=== PATIENT | female | born 1935 | race Caucasian/White ===

== ENCOUNTER 2017-07-17 07:13 | Inpatient (IN) | payer MEDICARE, OTHER | END 2017-07-24 13:00 | DRG 418 | LOC: D.ER 07:13 → D.SDCHOLD 18:45 → D.MS 21:39 | PROC: 0FT44ZZ Resection of Gallbladder, Percutaneous Endoscopic Approach (ICD-10-PCS; principal; 2017-07-20) | PROC: BF121ZZ Fluoroscopy of Gallbladder using Low Osmolar Contrast (ICD-10-PCS; 2017-07-20) | PROC: 0FB03ZX Excision of Liver, Percutaneous Approach, Diagnostic (ICD-10-PCS; 2017-07-20) | DX: K81.0 Acute cholecystitis (principal); R18.8 Other ascites; R16.0 Hepatomegaly, not elsewhere classified; I48.91 Unspecified atrial fibrillation; D64.9 Anemia, unspecified; T50.995A Adverse effect of other drugs, medicaments and biological substances, initial encounter; I44.7 Left bundle-branch block, unspecified; I48.0 Paroxysmal atrial fibrillation ==

== ENCOUNTER → 2019-02-14 10:35 | Outpatient (CLI) | payer MEDICARE, OTHER ==
[2017-07-18 13:15] VITALS: BMI 28.2
[~2019-02-14 10:35] MED LIST: CENTRUM COMPLE1 EACH PO; COLACE100 MG PO; FIORINAL W/CODE1 CA1 PO; FLAGYL500 MG PO; LEVAQUIN500 MG PO; LOMOTIL TABLET1 TAB PO; NORCO 10/325 TA1 TA1 PO; PRAVACHOL40 MG PO; TIROSINT50 MCG PO; TUMS500 MG PO; TYLENOL 325 MG325 MG PO; VITAMIN D2000 UNIT PO; XARELTO20 MG PO
--- NOTE | 2019-02-17 14:31 | ST ---
PATIENT:GIANLUCA QUINTERO MEDICAL RECORD: [id number] SEX: F LOCATION:[facility] ORDER #: ADMISSION DATE: 02/14/19 AGE OF PATIENT: 84 REFERRING PHYSICIAN: INTERPRETING PHYSICIAN: BRIANDA LEWIS MD DATE OF SERVICE: 02/14/2019 PROCEDURE: Nuclear stress test. INDICATION: Angina, shortness of breath, hypertension. She was exercised on standard Lexiscan protocol with 27 mCi of sestamibi injected at peak stress, 9 mCi was used previously for rest images. FINDINGS: Gated SPECT reveals a dilated cardiomyopathy, ejection fraction decreased moderately at 38%. SPECT imaging: Cardiolite was used as myocardial perfusion agent. There is a mixed perfusion defect inferiorly and apically. This includes the basal, mid, apical, inferior segments as well as the apex itself. The defect is large. There is reversibility throughout as well as being fixed. OVERALL IMPRESSION: This is markedly abnormal nuclear stress test, high risk for an event in that there is reversibility and fixed perfusion defect throughout the entire inferior and apical area and ejection fraction is decreased at 38%. It does suggest the presence of hemodynamically significant coronary artery disease and a previous myocardial infarction with continued ischemia. TRANSINT:[id number] Voice Confirmation ID: [id number] DOCUMENT ID: [id number] BRIANDA LEWIS MD at 1431 CC: [id number] DICTATION DATE: 02/16/19 0935 MEDICAL PROGRAM SPECIALIST: 02/17/19 0109 DEP CLI 02/14/19 [place] [id number]
== END | disposition home or self-care (01) ==
LOC: D.HCCARDIO 10:35
PROVIDERS: ATTEND Internal Medicine Interventional Cardiology
DX: I20.9 Angina pectoris, unspecified (principal)

== ENCOUNTER 2019-02-21 09:25 | Outpatient (CLI) | payer MEDICARE, OTHER ==
[~2019-02-21] VITALS: Ht 167.6 cm; Wt 79.5 kg
--- NOTE | ~2019-02-21 | HEMODYNAMI ---
PATIENT:GIANLUCA QUINTERO MEDICAL RECORD: [id number] : 39 LOCATION:[facility] ADMISSION DATE: 02/21/19 Generatedon:02/21/201912:04 Patient name: GIANLUCA QUINTERO Patient #: [id number] SSN: : 1935 Date of study: 02/21/2019 Page: Of Hemodynamic Procedure Report Patient Data Patient Demographics Procedure consent was obtained First Name: GIANLUCA Gender: Female Last Name: INGRID : 1935 Middle Initial: M Age: 84 year(s) Patient #: [id number] Race: Unknown Additional ID: [id number] Contact details [address]: [address] [place] [address] State: [place] City: [place] Zip code: [address] Admission Admission Data Admission Date: 02/21/2019 Admission Time: 9:25 Lab Results Lab Result Date: 02/21/2019 Lab Result Time: 0:00 Biochemistry Name Units Result Min Max BUN mg/dl 26 --(----)-* 7 18 Creatinine mg/dl 0.8 --(-*--)-- 0.6 1.3 eGFR ml/min 73.71639 *-(----)-- 90 120 NONAFRICAN CBC Name Units Result Min Max Hemoglobin g/dl 13.5 --(*---)-- 13.5 17.5 Procedure Procedure Types Cath Procedure Diagnostic Procedure LHC LH w/Coronaries Sedation Charges Moderate Sedation up to 15 minutes Procedure Description Procedure Date Procedure Date: 02/21/2019 Procedure Start Time: 11:54 Procedure End Time: 12:02 Procedure Staff Name Function Jose Antonio Pandya MD Performing Physician Jazlyn Ross RN Nurse Faith Sabillon RT Scrub Meghan Sims RT Monitor Nithin Christianson RT Oil Field Operator Procedure Data Cath Procedure Fluoroscopy Diagnostic fluoroscopy Total fluoroscopy Time: 0.7 time: 0.7 min min Diagnostic fluoroscopy Total fluoroscopy dose: 270 dose: 270 mGy mGy Contrast Material Contrast Material Type Amount (ml) Isovue 300 48 Entry Location Entry Primary Successful Side Size Upsize Upsize Entry Closure Lux ccessful Closure Location (Fr) 1 (Fr) 2 (Fr) Remarks Device Remarks Radial Right 6 Fr Mechanical artery Short Compression Estimated blood loss: 5 ml Diagnostic catheters Device Type Used For End Catheter Placement DIAGNOSTIC [place] 110cm 5 Multi-vessel Fr catheter ([id number]) Angiography Procedure Complications No complications Procedure Medications Medication Administration Route Dosage 0.9% NaCl I.V. 100 ml/hr Oxygen etCO2 Nasal cannula 2 l/min Lidocaine 2% added to field 20 Heparin Flush Bag added to field 2 bags (1000units/500ml NS) Radial Cocktail added to field 1 syringe (Verapamil 2mg/Nitro 400mcg/Heparin 1500units) Versed I.V. 2 mg Fentanyl I.V. 100 mcg Hemodynamics Rest HGB: 13.5 (g/dl) Heart Rate: 73 (bpm) Pressure Samples Time Site Value (mmHg) Purpose Heart Use Rate(bpm) 11:57 LV 87/3,15 Snapshot 86 Snapshots Pre Cath Intra NCS Post Cath Vital Signs Time Heart Resp SPO2 etCO2 NIBP (mmHg) Rhythm Pain Sedation Rate (ipm) (%) (mmHg) Status Level (bpm) 11:47:57 64 21 97 0 Measuring NSR 0 (11) 10(A) , No pain 11:50:08 70 17 100 15 150/79(104) NSR 0 (11) 10(A) , No pain 11:54:33 70 13 98 11.3 131/76(94) NSR 0 (11) 10(A) , No pain 11:58:53 79 17 99 33.1 116/63(85) NSR 0 (11) 10(A) , No pain 12:03:09 74 13 94 33.8 116/55(75) NSR 0 (11) 10(A) , No pain Medications Time Medication Route Dose Verified Delivered Reason Notes E ffectiveness by by 11:46:16 0.9% NaCl I.V. 100 Jose Antonio Jazlyn used for ml/hr Ya Ross shellfish harvester 11:46:22 Oxygen etCO2 2 l/min Jose Antonio Crowea used for Nasal Ya Ross procedure cannula RN 11:46:27 Lidocaine 2% added 20ml Jose Antonio Brady for local to vial Ya Pandya MD anesthetic field 11:46:31 Heparin Flush added 2 bags Jose Antonio Pagerey used for Bag to Ya Pandya MD procedure (1000units/500ml field NS) 11:46:37 Radial Cocktail added 1 Jose Antonio Jose Antonio used for (Verapamil to syringe Ya Pandya MD procedure 2mg/Nitro field 400mcg/Heparin 1500units) 11:54:48 Versed I.V. 2 mg Jose Antonio Hobson for Ya Ross sedation RN 11:54:56 Fentanyl I.V. 100 mcg Jose Antonio Hobson for aY Ross sedation braider operator Log Time Note 11:25:24 Faith Sabillon RT(R) sent for patient. Start room use. 11:36:41 Diagnostic Cath Status : Elective 11:37:14 ACC Patient presents with Stable Angina CCS Anginal Class 2--Slight limitation of ordinary activity. 11:37:18 ACCPatient has been prescribed/administered the following anti-anginal medication within the last 2 weeks: None 11:37:21 Procedure Status Elective Heart Cath (OP). 11:37:30 Time tracking: Regular hours (M-F 7:00 - 5:00) 11:37:36 Plan of Care:Hemodynamics will remain stable., Cardiac rhythm will remain stable., Comfort level will be maintained., Respiratory function will remain adequate., Patient/ family verbilizes understanding of procedure., Procedure tolerated without complication., Recovers from procedure without complications.. 11:37:40 Patient received from Pre/Post Procedure Room to [facility] 2 Alert and oriented. Tansferred to table in Supine position. 11:37:42 Warm blankets applied, and clinton hugger turned on for patient comfort. 11:37:43 Signed procedure consent form obtained from patient. 11:37:44 Correct patient and procedure confirmed by team. 11:37:45 ECG and BP/O2 sat monitors applied to patient. 11:46:08 Vital chart was started 11:46:16 0.9% NaCl 100 ml/hr I.V. was administered by Jazlyn Ross RN; used for procedure; 11:46:22 Oxygen 2 l/min etCO2 Nasal cannula was administered by Jazlyn Ross RN; used for procedure; 11:46:27 Lidocaine 2% 20ml vial added to field was administered by Jose Antonio Pandya MD; for local anesthetic; 11:46:31 Heparin Flush Bag (1000units/500ml NS) 2 bags added to field was administered by Jose Antonio Pandya MD; used for procedure; 11:46:37 Radial Cocktail (Verapamil 2mg/Nitro 400mcg/Heparin 1500units) 1 syringe added to field was administered by Jose Antonio Pandya MD; used for procedure; 11:49:39 Baseline sample Acquired. 11:49:49 Rhythm: sinus rhythm 11:49:51 Full Disclosure recording started 11:49:55 H&P Date Dictated: 02/21/2019 Within 30 days and on chart., H&P Addendum completed by physician on day of procedure. (MUST COMPLETE FOR ALL OUTPATIENTS). 11:49:56 Pre-procedure instructions explained to patient. 11:49:57 Pre-op teaching completed and patient verbalized understanding. 11:49:59 Family in patients room. 11:50:01 Patient NPO since Midnight. 11:50:02 Is the patient allergic to Iodine/contrast media? No. 11:50:03 Was the patient premedicated? No 11:50:06 Is patient on blood thinner?Yes 11:50:09 ACC The patient was administered the following blood thiners within the last 24 hours: ACCLovenox 11:50:12 Patient diabetic? No. 11:50:14 Previous problem with sedation/anesthesia? No ? 11:50:16 Snore? Yes 11:50:16 Sleep apnea? Yes 11:50:17 Deviated septum? No 11:50:18 Opens mouth fully? Yes 11:50:19 Sticks out tongue? Yes 11:50:20 Airway obstruction? No ? 11:50:23 Dentures? No ? 11:50:27 Pre procedure: right dorsailis pedis pulse 1+ Palpable, but thready & weak; easily obliterated 11:50:29 Pre procedure: left dorsailis pedis pulse 1+ Palpable, but thready & weak; easily obliterated 11:50:32 Patient pain scale 0/10 ?. 11:50:39 IV patent on arrival in right antecubital with 0.9% NaCl at KVO. 11:50:41 Lab results completed and on chart. 11:50:44 Right Radial & Right Groin area was prepped with chlora-prep and draped in sterile fashion 11:50:46 Alarms reviewed by R. N. 11:50:46 Sharps counted by scrub and verified by R.N. 11:53:06 Physician arrived 11:53:06 --------ALL STOP TIME OUT------ 11:53:06 Final Timeout: patient, procedure, and site verified with staff and physician. All members of the team are in agreement. 11:53:10 Right Radial & Right Groin site verified by team. 11:53:13 Fire Safety Assessment: A--An alcohol-based skin anteseptic being used preoperatively., C--Open oxygen or nitrous oxide is being used., D--An ESU, laser, or fiber-optic light is being used. 11:53:16 Physical assessment completed. ASA score P 2 - A patient with mild systemic disease as per Jose Antonio Pandya MD. 11:54:03 Sedation plan: IV Moderate Sedation Medication:Versed, Fentanyl 11:54:06 Use device set Radial Dx or PCI 11:54:08 ACIST Syringe (51628) opened to sterile field. 11:54:09 Medline Cath Pack ([id number]) opened to sterile field. 11:54:09 Bag Decanter (2002S) opened to sterile field. 11:54:09 ACIST Hand Control (58443) opened to sterile field. 11:54:10 ACIST Manifold (10536) opened to sterile field. 11:54:10 Tegaderm 4 x 4 (1626W) opened to sterile field. 11:54:11 MBrace Wrist Support ([id number]) opened to sterile field. 11:54:13 SHEATH 6FR RAIN (3068845) opened to sterile field. 11:54:14 EMERALD Guide Wire (903-847) opened to sterile field. 11:54:17 Procedure started. 11:54:23 Local anesthetic to right radial artery with Lidocaine 2% by Jose Antonio Pandya MD.INITIAL ACCESS ONLY 11:54:31 A 6 Fr Short sheath was inserted into the Right Radial artery 11:54:48 Versed 2 mg I.V. was administered by Jazlyn Ross RN; for sedation; 11:54:56 Fentanyl 100 mcg I.V. was administered by Jazlyn Ross RN; for sedation; 11:55:12 Lab Result : Creatinine 0.8 mg/dl 11:55:12 Lab Result : BUN 26 mg/dl 11:55:12 Lab Result : eGFR NONAFRICAN 73.59456 ml/min 11:55:12 Lab Result : Hemoglobin 13.5 g/dl 11:55:22 2) 60-89 Mildly reduced kidney function, and other findings (as for stage 1) point to kidney disease. 11:55:40 Maximum allowable contrast dose (3.7 X eGFR X 0.75)202 ml. 11:56:31 A DIAGNOSTIC [place] 110cm 5 Fr catheter ([id number]) was advanced over the wire and used for Multi-vessel Angiography. 11:57:27 LV hemodynamics recorded. 11:57:28 LV gram done using STEWART 11:57:31 Injector settings: Ml/sec: 5, Volume: 15, 11:57:38 EF : 60 % 11:58:20 LCA angiography performed. 11:58:24 Injector settings: Ml/sec: 3, Volume: 6, 11:58:57 RCA angiography performed. 11:59:00 Injector settings: Ml/sec: 3, Volume: 6, 11:59:30 Catheter removed. 11:59:33 ZEPHYR REGULAR TR BAND (764377) opened to sterile field. 12:00:20 ACCDominant side:Left 12:00:36 Sheath removed intact; hemostasis achieved with Mechanical Compression to the Right Radial artery. 12:00:38 Procedure ended.(Physican Out) 12:01:25 Fluoroscopy time 00.70 minutes. 12:01:29 Flurop Dose total: 270 12::29 Fluoroscopy dose: 270 mGy 12:01:35 Dose Area Product 29339 mGy/cm. 12:01:39 Contrast amount:Isovue 300 48ml. 12:01:40 Sharps counted by scrub and verified by R.N. 12:01:47 Insertion/operative site no bleeding no hematoma. 12:01:54 Post right radial artery:stable 12:01:56 Post Procedure Pulses reassessed and unchanged 12:01:59 Post procedure rhythm: unchanged. 12:02:02 Estimated blood loss: 5 ml 12:02:04 Post procedure instruction explained to patient.Patient verbalizes understanding. 12:02:04 Patient needs reinforcement of post procedure teaching. 12:02:11 Procedure type changed to Cath procedure, Diagnostic procedure, LHC, LHC w/Coronaries, Sedation Charges, Moderate Sedation up to 15 minutes 12:02:12 Procedure and supply charges have been captured, reviewed, submitted and are correct. 12:02:16 Procedure Complication : No complications 12:02:18 Vital chart was stopped 12:02:19 See physician's report for complete and final results. 12:02:22 Report given to Pre/Post Procedure Room. 12:02:25 Patient transfered to Pre/Post Procedure Room with Stretcher. 12:02:27 Procedure ended. 12:02:27 Full Disclosure recording stopped 12:02:58 End room use (Document Last) Device Usage Item Name Manufacture Quantity Catalog Hospital Part Current Minima l Lot# / Number Charge Number Stock Stock Serial# Code ACIST Acist 1 [id number] [id number] 20 Syringe Medical (55343) Systems Inc Medline Medline 1 [id number] [id number] 81212 674588 5 Cath Pack ([id number]) Bag Microtek 1 2001S 358597 73922 130929 5 Decanter Medical Inc. (2001S) ACIST Hand Acist 1 77215 562861 549998 965531 5 Control Medical (97903) Systems Inc ACIST Acist 1 89692 685562 343240 678908 5 Manifold Medical (59874) Systems Inc Tegaderm 4 3M 1 1626W 206654 651469 404523 5 x 4 (1626W) MBrace Advanced 1 140-0250-00 587941 35756 156225 5 Wrist Vascular Support Dynamics ([id number]) SHEATH 6FR Cardinal 1 9254391 525892 4462419 650830 5 [facility] Health (8714355) EMERALD Cardinal 1 502455 953685 840863 879243 5 Guide Wire Health (388-349) DIAGNOSTIC Terumo 1 40-6300 018570 031274 072754 5 [place] 110cm 5 Fr catheter (934278) ZEPHYR Cardinal 1 331305 473191 0064191 454400 5 REGULAR TR Health BAND (474385) Signature Audit [place] Stage Time Signature Unsigned Intra-Procedure 02/21/2019 Meghan Sims 12:04:15 PM RT(R) Signatures Performing Physician : Signature : Jose Antonio Pandya MD Date : Time : Nurse : Jazlyn Cody RN Signature : Date : Time : Monitor : Meghan Levi RT Signature : Date : Time : [address] [place] [address]
[2019-02-21] MEDS ORDERED: XARELTO20 MG PO (09:51)
[2019-02-21 10:13] VITALS: BP 131/47; Ht 167.6 cm; Wt 79.5 kg
[2019-02-21 10:13] LABS: BASOPHILS 0.2 % (0-2); EOSINOPHILS 1.1 % (0-7); HEMATOCRIT 39.5 % (36.0-48.0); HEMOGLOBIN 13.5 g/dL (12-16); IMMATURE GRANULOCYTES 0.2 % (0-5); LYMPHOCYTES 25.3 % (15-50); MCH 29.9 pg (26.0-34.0); MCHC 34.2 g/dL (31.0-37.0); MCV 87.4 fL (80.0-100.0); MEAN PLATELET VOLUME 10.6 fL (7.4-10.4); MONOCYTES 10.5 % (2-11); NEUTROPHILS 62.7 % (40-80); PLATELET COUNT 231 10x3/uL (130-400); RBC 4.52 10x6/uL (4.00-5.40); RDW 13.4 % (11.5-14.5); WBC 6.3 10x3/uL (4.8-10.8)
[2019-02-21 10:36] LABS: ANION GAP 13.8 mmol/L (8-16); CALCIUM 9.5 mg/dL (8.5-10.1); CARBON DIOXIDE 28.5 mmol/L (21.0-32.0); CREATININE - SERUM 0.8 mg/dL (0.6-1.3); LDL-HDL RATIO 1.7 ratio (1.5-3.5); POTASSIUM - SERUM 4.3 mmol/L (3.5-5.1)
--- NOTE | 2019-02-21 12:15 | NUR ---
PT ARRIVED BY STRETCHER. PLACED ON MONITORS. ASSESSMENT COMLETED. VSS. CALL LIGHT WITHIN REACH.
--- NOTE | 2019-02-21 12:30 | NUR ---
PT RESTING COMFORTABLY. VSS. RIGHT WRIST Z BAND IN PLACE. NO BLEEDING/HEMATOMA NOTED. NO NEEDS AT THIS TIME.
--- NOTE | 2019-02-21 13:00 | NUR ---
DR. LEWIS ROUNDED AND SPOKE WITH PT. SHE VOICED UNDERSTANDING. CALL LIGHT WITHIN REACH. 2cc OF AIR REMOVED FROM Z BAND. NO BLEEDING/HEMATOMA NOTED. PT SITTING UP AND EATING SANDWICH AND DRINK. DENIES NAUSEA/PAIN AT THIS TIME. CALLED HER RIDE HOME AND NOTIFIED THEM OF HER DISCHARGE TIME.
--- NOTE | 2019-02-21 13:15 | NUR ---
3cc OF AIR REMOVED FROM Z BAND. NO BLEEDING/HEMATOMA NOTED. CALL LIGHT WITHIN REACH. VSS.
--- NOTE | 2019-02-21 13:35 | NUR ---
4cc OF AIR REMOVED FROM Z BAND. NO BLEEDING/HEMATOMA NOTED. WILL MONITOR. VSS.
--- NOTE | 2019-02-21 14:00 | NUR ---
Z BAND REMOVED. DRESSING APPLIED. NO BLEEDING/HEMATOMA NOTED. VSS. RIGHT WRIST BRACE IN PLACE. DISCUSSED DISCHARGE INSTRUCTIONS WITH PT. SHE VOICED UNDERSTANDING. PIV D/C'D WITH CATH TIP INTACT. SHE TOLERATED WELL. PT ASSISTED WITH GETTING DRESSED. FALL RISK IN PLACE.
--- NOTE | 2019-02-21 14:15 | NUR ---
PT TAKEN TO RESTROOM BY WHEELCHAIR. VOIDED WITHOUT DIFFICULTY.
--- NOTE | 2019-02-21 14:20 | NUR ---
PT TAKEN OUT TO VEHICLE BY WHEELCHAIR. NO S/S OF DISTRESS NOTED. ALL BELONGINGS AND PAPERWORK IN HAND.
--- NOTE | 2019-02-22 10:10 | OP ---
PATIENT NAME: GIANLUCA QUINTERO MEDICAL RECORD: [id number] :37 LOCATION:[facility] ADMISSION DATE: SURGEON: BRIANDA LEWIS MD DATE OF OPERATION: 02/21/2019 PROCEDURES: 1. Left heart catheterization. 2. Selective coronary angiography. 3. Left ventriculogram. INDICATION: Angina and coronary artery disease. PROCEDURE IN DETAIL: After informed consent was obtained and after a detailed description of risks, benefits as well as alternative therapies, the patient elected to proceed with angiogram and heart catheterization. Right radial area was prepped and draped in normal sterile fashion. Right radial artery was cannulated via modified Seldinger technique with placement of 5-Citizen Of [place] sheath. All catheters exchanged through this sheath. FINDINGS: Left ventriculogram was performed in a standard 30-degree STEWART view, reveals preserved cardiac wall motion, ejection fraction in the 50% range. SELECTIVE CORONARY ANGIOGRAPHY: Left main, left anterior descending, left circumflex, right coronary artery are all smooth-walled vessels with no angiographic evidence of coronary artery disease. OVERALL IMPRESSION: 1. No angiographic evidence of coronary artery disease. 2. Normal left heart pressures. 3. Normal left ventricular systolic function. Nuclear stress test was false positive. No coronary disease is present. TRANSINT:[id number] Voice Confirmation ID: [id number] DOCUMENT ID: [id number] BRIANDA LEWIS MD at 1010 CC: [id number] DICTATION DATE: 02/21/19 1203 DEPUTY SHERIFF CUSTODY: 02/21/19 1228 DEP CLI 02/21/19 [place] [address]
== END 2019-02-21 14:20 | disposition home or self-care (01) ==
LOC: D.CATH 09:25
PROVIDERS: ATTEND Internal Medicine Interventional Cardiology
DX: R94.30 Abnormal result of cardiovascular function study, unspecified (principal); R06.02 Shortness of breath

== ENCOUNTER → 2019-05-17 17:14 | Outpatient (CLI) | payer MEDICARE, OTHER ==
[2019-02-21 10:13] VITALS: BMI 28.3
[2019-05-17 18:10] LABS: CHOL - HDL RATIO 3.6 ratio (2.3-4.1); LDL-HDL RATIO 2.4 ratio (1.5-3.5)
== END | disposition home or self-care (01) ==
LOC: D.LABREF 17:14
PROVIDERS: ATTEND Internal Medicine Interventional Cardiology
DX: E78.5 Hyperlipidemia, unspecified (principal)